=== PATIENT | male | born 2000 | race Caucasian/White ===

== ENCOUNTER 2021-05-21 17:15 | Emergency (ER) | payer OTHER, SELFPAY ==
[2021-05-21 18:10] VITALS: BP 162/64; PULSE 67; RESP 16; TEMP 36.9; O2SAT 98; BMI 21.4
== END 2021-05-21 21:45 | disposition left against medical advice (07) ==
PROVIDERS: Emergency Provider Emergency Medicine; PCP Pediatrics
DX: R50.9 Fever, unspecified (principal)
CPT/HCPCS: 99281; 99282

== ENCOUNTER 2021-11-23 04:05 | Emergency (ER) | payer OTHER, SELFPAY ==
--- NOTE | ~2021-11-23 | XR_ITS ---
EXAMINATION: XR HAND, RIGHT CLINICAL INFORMATION: Hand injury COMPARISON: None TECHNIQUE: PA, lateral, and oblique views of the right hand. FINDINGS: A marker is directed towards the base of the ulnar aspect of the fifth proximal phalanx. No fractures, malalignment, soft tissue emphysematous changes, arthropathic changes or dystrophic calcifications noted. No definitive soft tissue inflammatory changes visualized. XR/XR hand RT 2V IMPRESSION: No acute abnormalities identified.
[2021-11-23 04:10] VITALS: BP 139/73; PULSE 118; RESP 18; TEMP 37.3; O2SAT 96; BMI 24.7
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
== END 2021-11-23 08:08 | disposition home or self-care (01) ==
PROVIDERS: Emergency Provider Emergency Medicine Emergency Medical Services
DX: S69.91XA Unspecified injury of right wrist, hand and finger(s), initial encounter (principal); S61.111A Laceration without foreign body of right thumb with damage to nail, initial encounter; S61.310A Laceration without foreign body of right index finger with damage to nail, initial encounter; S61.411A Laceration without foreign body of right hand, initial encounter; X58.XXXA Exposure to other specified factors, initial encounter; Y93.9 Activity, unspecified; Y92.9 Unspecified place or not applicable; Y99.9 Unspecified external cause status
CPT/HCPCS: 12002; 73120; 99283

== ENCOUNTER 2021-12-03 17:58 | Emergency (ER) | payer OTHER, SELFPAY ==
[2021-12-03 19:55] VITALS: BP 135/66; PULSE 68; RESP 16; TEMP 37.1; O2SAT 97; BMI 22.1
[2021-12-03 20:53] VITALS: BP 115/59; PULSE 67; RESP 18; TEMP 36.9; O2SAT 96
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
== END 2021-12-03 21:23 | disposition home or self-care (01) ==
PROVIDERS: Emergency Provider Internal Medicine
DX: Z48.02 Encounter for removal of sutures (principal)
CPT/HCPCS: 99282; 99283

== ENCOUNTER 2024-06-16 04:21 | Emergency (ER) | payer OTHER, SELFPAY ==
--- NOTE | ~2024-06-16 | XR_ITS ---
EXAMINATION: XR HAND, LEFT CLINICAL INFORMATION: pain, laceration, specifically thumb COMPARISON: None available. TECHNIQUE: PA, lateral, and oblique views of the left hand. FINDINGS: The bones and soft tissues are normal. No fracture. Alignment is anatomic. Joint spaces are maintained. No erosions or soft tissue calcifications. XR/XR hand LT min 3V IMPRESSION: Normal left hand. Electronically signed by: Rainer Ely MD 06/16/2024 07:52 AM MARIA ISABEL
[2024-06-16 04:27] VITALS: BP 137/73; PULSE 104; RESP 18; TEMP 36.8; O2SAT 95; BMI 22.9
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
[2024-06-16] MEDS: Diphth,Pertus(ACell),Tet Adult 0.5 ML SYRINGE IM (07:23)
[2024-06-16 07:35] VITALS: BP 121/51; PULSE 74; RESP 16; TEMP 36.4; O2SAT 98
[2024-06-16 08:09] LABS: Amphetamine Screen Urine Not Detected (Not Detect); Barbiturates, Urine Not Detected (Not Detect); Benzodiazepines Screen Urine Not Detected (Not Detect); Buprenorphine Scr Not Detected (Not Detect); Cannabinoid Screen Urine POSITIVE (Not Detect); Cocaine Screen Urine Not Detected (Not Detect); Fentanyl, urine Not Detected (Not Detect); Methadone Screen, Urine Not Detected (Not Detect); Opiate Screen Urine Not Detected (Not Detect); Oxycodone Screen Urine Not Detected (Not Detect); Phencyclidine Screen Urine Not Detected (Not Detect)
[2024-06-16] MEDS: Lidocaine HCl 2 % 20 ML VIAL INFILTRATI (09:46)
[2024-06-16 10:16] VITALS: BP 108/70; PULSE 79; RESP 18; TEMP 36.8; O2SAT 99
== END 2024-06-16 10:17 | disposition home or self-care (01) ==
PROVIDERS: Emergency Provider Student in an Organized Health Care Education/Training Program
DX: S61.012A Laceration without foreign body of left thumb without damage to nail, initial encounter (principal); M79.642 Pain in left hand; Z51.81 Encounter for therapeutic drug level monitoring; Z79.899 Other long term (current) drug therapy; X99.0XXA Assault by sharp glass, initial encounter; Y93.89 Activity, other specified; Y92.89 Other specified places as the place of occurrence of the external cause; Y99.8 Other external cause status; Z23 Encounter for immunization
CPT/HCPCS: 12042; 73130; 80307; 90471; 90715; 99284; J2003

== ENCOUNTER → 2024-06-16 07:16 | Outpatient (BNV) | payer OTHER, SELFPAY | PROVIDERS: Emergency Provider Student in an Organized Health Care Education/Training Program; Visit Provider Radiology Diagnostic Radiology | DX: S61.012A Laceration without foreign body of left thumb without damage to nail, initial encounter (principal); M79.645 Pain in left finger(s) | CPT/HCPCS: 73130 ==